=== PATIENT | female | born 1950 | race Caucasian/White ===

== ENCOUNTER → 2016-07-30 | Day surgery (SDC) | payer MEDICARE, OTHER | END | disposition home or self-care (01) | LOC: SDC 06:30 | DX: N13.5 Crossing vessel and stricture of ureter without hydronephrosis (principal); R03.0 Elevated blood-pressure reading, without diagnosis of hypertension; G47.30 Sleep apnea, unspecified; I10 Essential (primary) hypertension; K21.9 Gastro-esophageal reflux disease without esophagitis; F32.9 Major depressive disorder, single episode, unspecified; G89.29 Other chronic pain; Z90.49 Acquired absence of other specified parts of digestive tract; Z79.899 Other long term (current) drug therapy | CPT/HCPCS: C1894; C2617; C2625; J2370; J2704; Q9967 ==